=== PATIENT | male | born 1990 | race Caucasian/White ===

== ENCOUNTER 2020-04-04 17:28 | Emergency (ER) | payer BC ==
[2020-04-04 17:35] VITALS: BP 139/90; PULSE 87; RESP 18; TEMP 99
[2020-04-04] MEDS ORDERED: CYCLOBENZAPRINE 10 MG TAB PO STA (18:24)
[2020-04-04] MEDS ORDERED: LIDOCAINE 5% PATCH TOPICAL STA (18:24)
[2020-04-04] MEDS ORDERED: KETOROLAC 15 MG/ML 1 ML VIAL IM STA (18:24)
--- NOTE | 2020-04-04 18:24 | ED ---
Back Pain HPI - General Chief Complaint: Back Pain/Injury Stated Complaint: Lower back pain, abd pain, groin pain Time Seen by Provider: 04/04/20 18:10 Source: patient Limitations: no limitations - History of Present Illness Initial Comments: 29-year-old male presenting to emergency Department with a chief complaint of back pain. Patient reports the back pain has been well for the past several months. 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 Patient states most of the day spent standing and bent over to make the pizza. Patient reports now he also has some radiation of the pain along to the right groin region and into the right testicle. States that pain is intermittent. States the pain is exacerbated with rotation of the back. He denies any dysuria, increased urgency or frequency. Denies hematuria, medication related. Denies any nausea vomiting diarrhea. Denies any testicular swelling or erythema. No history of abdominal surgery. Denies any paresthesias or weakness in the lower extremities. Denies trauma to the back. Denies saddle anesthesia, urinary retention with overflow incontinence or bowel incontinence. - Related Data Allergies Allergy/AdvReac Type Severity Reaction Status Date / Time No Known Allergies Allergy Verified 04/04/20 20:28 Review of Systems ROS Statement: Those systems with pertinent positive or pertinent negative responses have been documented in the HPI. ROS Other: All systems not noted in ROS Statement are negative. Past Medical History Past Medical History: No Reported History History of Any Multi-Drug Resistant Organisms: None Reported Additional Past Surgical History / Comment(s): hypospadia surgery Past Psychological History: No Psychological Hx Reported Smoking Status: Current every day smoker Past Alcohol Use History: Occasional Past Drug Use History: None Reported General Exam Limitations: no limitations General appearance: alert, in no apparent distress Head exam: Present: atraumatic, normocephalic, normal inspection Eye exam: Present: normal appearance, PERRL, EOMI Pupils: Present: normal accommodation ENT exam: Present: normal exam, normal oropharynx, mucous membranes moist, TM's normal bilaterally, normal external ear exam Neck exam: Present: normal inspection, full ROM. Absent: tenderness Respiratory exam: Present: normal lung sounds bilaterally. Absent: respiratory distress, wheezes, rales, rhonchi, stridor Cardiovascular Exam: Present: regular rate, normal rhythm, normal heart sounds GI/Abdominal exam: Present: soft, tenderness (Some tenderness on the right groin region.). Absent: distended, guarding, rebound, rigid exam: Present: normal inspection. Absent: testicular tenderness, urethral discharge, scrotal swelling, vertical testicular lie Extremities exam: Present: normal inspection, full ROM, normal capillary refill. Absent: tenderness, pedal edema, joint swelling Back exam: Present: normal inspection, full ROM, tenderness, paraspinal tenderness (Paraspinal tenderness on bilateral lumbosacral region.). Absent: CVA tenderness (R), other (Negative leg raise test bilaterally.) Neurological exam: Present: alert, oriented X3, normal gait Psychiatric exam: Present: normal affect, normal mood Skin exam: Present: warm, dry, intact, normal color Course Vital Signs 04/04/20 17:30 Temperature 99 F Pulse Rate 87 Respiratory 18 Rate Blood Pressure 139/90 O2 Sat by Pulse 99 Oximetry Medical Decision Making - Medical Decision Making 29-year-old male presenting to the emergency department with a chief complaint of back pain. On physical examination, patient has bilateral paraspinal tenderness in the lumbosacral region. Some right groin tenderness. examination is unremarkable. X-ray of the lumbar spine is unremarkable. Ultrasound of the right groin region was obtained to rule out a hernia. Only detectable lymph nodes but no signs of a hernia. Patient was given Toradol, Lidoderm patch and Flexeril. Reevaluation, patient reports improvement in symptoms. He will be discharged with Tylenol 3 starter pack. No concern for cauda equina. The patient to follow with microbial specialist. Strict return parameters were thoroughly discussed with patient was understanding and agreeable. Case discussed with physician. - Lab Data Lab Results 04/04/20 Range/Units 18:35 Urine Color Light Yellow Urine Appearance Clear (Clear) Urine pH 6.5 (5.0-8.0) Ur Specific [place] 1.005 (1.001-1.035) Urine Protein Negative (Negative) Urine Glucose (UA) Negative (Negative) Urine Ketones Negative (Negative) Urine Blood Negative (Negative) Urine Nitrite Negative (Negative) Urine Bilirubin Negative (Negative) Urine Urobilinogen <2.0 (<2.0) mg/dL Ur Leukocyte Esterase Negative (Negative) Disposition Clinical Impression: Mechanical back pain, Strain of lumbar region Disposition: HOME SELF-CARE Condition: Stable Instructions (If sedation given, give patient instructions): Acute Low Back Pain (ED) Additional Instructions: Take prescribed medication as directed. Follow-up with a orthopedic surgeon. Return to emergency department if symptoms worsen. Is patient prescribed a controlled substance at d/c from ED?: No Referrals: James Martin MD [Primary Care Provider] - 1-2 days Rocio Vale DO [Doctor of Osteopathic Medicine] - 1-2 days Time of Disposition: 20:08
[2020-04-04 18:44] LABS: Appearance,Urine Clear (Clear); Bilirubin,Urine Negative (Negative); Blood,Urine Negative (Negative); Color,Urine Light Yellow; Glucose,Urine (UA) Negative (Negative); Ketones,Urine Negative (Negative); Leukocyte Esterase,Urine Negative (Negative); Nitrite,Urine Negative (Negative); PH, Urine 6.5 (5.0-8.0); Protein,Urine Negative (Negative); Specific Gravity,Urine 1.005 (1.001-1.035); Urobilinogen,Urine <2.0 mg/dL (<2.0)
--- NOTE | 2020-04-04 19:06 | XR ---
EXAMINATION TYPE: XR lumbar spine 2 or 3V DATE OF EXAM: 04/04/2020 COMPARISON: NONE HISTORY: Back pain TECHNIQUE: 3 views FINDINGS: Lumbar vertebra have normal alignment. Disc spaces are fairly normal. Posterior elements ar e intact. There is no compression fracture. Sacroiliac joints appear intact. IMPRESSION: Negative lumbar spine exam.
--- NOTE | 2020-04-04 19:38 | US ---
EXAMINATION TYPE: US groin RT DATE OF EXAM: 04/04/2020 COMPARISON: NONE CLINICAL HISTORY: r/o hernia. R/O hernia. Right groin pain x 5 days. Scanned right groin area of concern. Multiple hypoechoic areas with hyperechoic center and vascular codey seen. Largest measures 3.4 x 0.8 x 0.6 cm. No further findings at this time by ultrasound. IMPRESSION: There are a few right inguinal lymph nodes. No evidence of a hernia.
[2020-04-04] MEDS ORDERED: ACET/COD 300 MG/30 MG STARTER PACK 6 TAB BTL PO STA (20:08)
== END 2020-04-04 20:34 | disposition home or self-care (01) ==
LOC: EC 17:28
DX: S39.012A Strain of muscle, fascia and tendon of lower back, initial encounter (principal); R59.0 Localized enlarged lymph nodes; F17.200 Nicotine dependence, unspecified, uncomplicated; X50.9XXA Other and unspecified overexertion or strenuous movements or postures, initial encounter
CPT/HCPCS: 81003; 72100; 76882; 96372; 99284; J1885